=== PATIENT | male | born 1965 | race Caucasian/White ===

== ENCOUNTER 2018-02-13 07:39 | Emergency (ER) | payer BC ==
[~2018-02-13] VITALS: Ht 188 cm; Wt 102.1 kg
[~2018-02-13 07:39] MED LIST: ALPR.5 PO; AMOX500 PO; ARIP20 PO; BENZ100A PO; BUPIVACAINE; BUPR150ER; CARI350 PO; CODGUAEL PO; CRUTCH3 USE; CYCL10 PO; DIAZ5 PO; DOC250 PO; DOXY100 PO; ESCI20 PO; GABA300; GABA400 PO; HYDACE10B PO; HYDACE5 PO; HYDACE5325 PO; HYDMOR2 PO; HYDMOR4 PO; IBUP200; IBUP400 PO; IBUP600 PO; IBUP800 PO; KETO10 PO; METPRE4DP PO; Norco 5-325 Ta1 EACH PO; OLAN10; OXYACE10 PO; OXYACE5T PO; PRED20 PO; PROACE100 PO; PROM25 PO; PROM25S PR; Percocet 10-321 EACH PO; Percocet 5-3251 EACH PO; QUET200; RANI150 PO; RXALBOI INH; RXCODGUASY PO; RXCYCL10 PO; RXHYDMOR2 PO; SULTRIDS PO; TRAM50 PO; Valium5 MG PO
[2018-02-13] MEDS ORDERED: CYCL10 PO (08:19)
[2018-02-13] MEDS ORDERED: Norco 5-325 Ta1 EACH PO (08:19)
== END 2018-02-13 09:03 | disposition home or self-care (01) ==
LOC: ER 07:39
DX: G89.29 Other chronic pain (principal); M54.5 Low back pain; F17.210 Nicotine dependence, cigarettes, uncomplicated; Z88.6 Allergy status to analgesic agent; Z88.1 Allergy status to other antibiotic agents
CPT/HCPCS: 96372; 99282; J1170

== ENCOUNTER 2019-11-18 04:53 | Emergency (ER) | payer OTHER ==
[~2019-11-18] VITALS: Ht 190.5 cm; Wt 99.8 kg
== END 2019-11-18 06:04 | disposition home or self-care (01) ==
LOC: ER 04:53
DX: S60.221A Contusion of right hand, initial encounter (principal); I10 Essential (primary) hypertension; M54.9 Dorsalgia, unspecified; G89.29 Other chronic pain; F17.210 Nicotine dependence, cigarettes, uncomplicated; W19.XXXA Unspecified fall, initial encounter
CPT/HCPCS: 73130; 99283-25

== ENCOUNTER 2020-05-06 13:32 | Emergency (ER) | payer OTHER ==
[~2020-05-06] VITALS: Ht 190.5 cm; Wt 95.2 kg
== END 2020-05-06 15:51 | disposition home or self-care (01) ==
LOC: ER 13:32
DX: R51.9 Headache, unspecified (principal); R11.10 Vomiting, unspecified; H53.149 Visual discomfort, unspecified; F17.210 Nicotine dependence, cigarettes, uncomplicated; Z88.1 Allergy status to other antibiotic agents; Z88.2 Allergy status to sulfonamides
CPT/HCPCS: 70450; 96361; 96374; 96375; 99284-25; J0780; J1200; J1885; J7030

== ENCOUNTER 2021-07-22 12:22 | Emergency (ER) | payer OTHER ==
[~2021-07-22] VITALS: Ht 188 cm; Wt 95.2 kg
[~2021-07-22 12:22] MED LIST changes: +CELECOXIB50 MG PO; +CODACE30 PO
[2021-07-22 13:39] LABS: Source, Urine Clean Catch
[2021-07-22 13:49] LABS: Appearance, Urine Clear (Clear); Bilirubin, Urine Neg (Neg); Blood, Urine Neg (Neg); Color, Urine Yellow (P-Yellow); Glucose Qualitative, Urine Neg (Neg); Ketones, Urine Neg (Neg); Leukocyte Esterase, Urine 1+ (Neg); Nitrite, Urine Neg (Neg); Protein, Urine Neg (Neg); Specific Gravity, Urine 1.025 (1.003-1.022); Urobilinogen, Urine NORM (Normal)
[2021-07-22 14:02] LABS: Bacteria Mod /hpf; Red Blood Cells, Urine Not Seen /hpf (0-2); Squamous Epithelial Cells Rare /hpf (Few); White Blood Cells, Urine 0-2 /hpf (0-5)
[2021-07-22 14:09] LABS: BASOPHILS ABSOLUTE AUTO 0.06 K/mm3 (0.00-0.23); BASOPHILS PERCENT AUTO 1 % (0-2); EOSINOPHILS ABSOLUTE AUTO 0.28 K/mm3 (0.00-0.68); EOSINOPHILS PERCENT AUTO 3 % (0-6); Hemoglobin 16.2 g/dL (13.5-17.5); IMMATURE GRAN ABSOLUTE AUTO 0.03 K/mm3 (0.00-0.10); IMMATURE GRAN PERCENT AUTO 0 % (0-1); LYMPHOCYTES ABSOLUTE AUTO 1.61 K/mm3 (0.84-5.20); LYMPHOCYTES PERCENT AUTO 16 % (21-46); MONOCYTES ABSOLUTE AUTO 0.72 K/mm3 (0.16-1.47); MONOCYTES PERCENT AUTO 7 % (4-13); Mean Corpuscular HGB 27.2 pg (26.0-34.0); Mean Corpuscular HGB Conc 31.8 g/dL (31.5-36.5); Mean Corpuscular Volume 86 fL (80-100); Mean Platelet Volume 10.9 fL (9.1-12.4); NEUTROPHILS PERCENT AUTO 73 % (41-73); Platelet Count 228 K/mm3 (150-400); RDW Coefficient Variation 14.1 % (11.7-14.2); RDW Standard Deviation 44.5 fL (35.1-46.3); Red Blood Cell Count 5.95 M/mm3 (4.30-5.90)
[2021-07-22 14:31] LABS: Alanine Aminotransfer (ALT/SGP 28 U/L (12-78); Albumin/Globulin Ratio 1.1 (0.8-1.8); Alk Phos 99 U/L (50-136); Anion Gap 7 mmol/L (6-16); Aspartate Aminotrans (AST/SGOT 13 U/L (12-37); Bilirubin, Total 0.3 mg/dL (0.1-1.0); Blood Urea Nitrogen 18 mg/dL (8-24); Bun/Creatinine Ratio 19.6 (12.0-20.0); CO2, Blood 27 mmol/L (21-32); Calcium, Blood 8.7 mg/dL (8.5-10.1); Chloride, Blood 106 mmol/L (98-108); Creatinine, Blood 0.92 mg/dL (0.60-1.20); Globulin, Blood 3.5 g/dL (2.2-4.0); Glomerular Filtration Rate >60 (60-); Glucose, Blood 112 mg/dL (70-99); Potassium, Blood 3.8 mmol/L (3.5-5.5); Sodium, Blood 140 mmol/L (136-145); Total Protein, Blood 7.5 g/dL (6.4-8.2)
[2021-12-29] MEDS ORDERED: OMEP20ER PO (12:44)
== END 2021-07-22 17:30 | disposition home or self-care (01) ==
LOC: ER 12:22
PROVIDERS: Physician Assistant
DX: K62.5 Hemorrhage of anus and rectum (principal); Z53.21 Procedure and treatment not carried out due to patient leaving prior to being seen by health care provider
CPT/HCPCS: 76705; 80053; 81001; 83690; 85025; 87086; 99284-25

== ENCOUNTER 2021-12-30 09:18 | Day surgery (SDC) | payer OTHER ==
[~2021-12-30] VITALS: Ht 188 cm; Wt 96.4 kg
[~2021-12-30 09:18] MED LIST changes: +OMEP20ER PO
--- NOTE | 2021-12-30 10:52 | NUR ---
12/30/21 1051 Amelia Lugo HISTORY, CHART, MEDICATIONS AND ALLERGIES REVIEWED BEFORE START OF PROCEDURE. PATIENT CONFIRMS NPO STATUS AND AGREES WITH SCHEDULED PROCEDURE. 3-LEAD EKG REVIEWED WITH PHYSICIAN PRIOR TO START OF PROCEDURE. MONITOR INTACT WITH CONTINUOUS PULSE OXIMETRY,CAPNOGRAPHY, 3-LEAD EKG, INTERMITTENT BP. SUPPLEMENTAL O2 TO BE TITRATED THROUGHOUT PROCEDURE TO MAINTAIN O2 SATURATION ABOVE 90%. PATIENT DETERMINED TO BE ASA APPROPRIATE FOR PROPOFOL SEDATION PRIOR TO START OF PROCEDURE BY DR. CHENG. LIDOCAINE SPRAY TO BACK OF THROAT PRIOR TO ENTERING ROOM.
--- NOTE | 2021-12-30 11:55 | NUR ---
Patient up to Ambulate independently. Gait steady. Discharge instructions reviewed with patient. Patient verbalizes understanding. Copy given to patient to take home. Patient States Post-Procedure ride home has been arranged. Discharged via wheelchair to private car for ride home. ALL BELONGINGS RETURNED TO PATIENT.
== END 2021-12-30 22:46 | disposition home or self-care (01) ==
LOC: ORSCMMR 09:18 → ORD 10:30 → ORSCMMR 10:30
PROVIDERS: Internal Medicine Gastroenterology
PROC: 0DB58ZX Excision of Esophagus, Via Natural or Artificial Opening Endoscopic, Diagnostic (ICD-10-PCS; principal; 2021-12-30 10:30)
DX: R10.13 Epigastric pain (principal); K92.1 Melena; K22.70 Barrett's esophagus without dysplasia; K21.00 Gastro-esophageal reflux disease with esophagitis, without bleeding; K44.9 Diaphragmatic hernia without obstruction or gangrene; F17.210 Nicotine dependence, cigarettes, uncomplicated; Z79.899 Other long term (current) drug therapy
CPT/HCPCS: 88305; J2704; J7120

== ENCOUNTER 2022-03-17 15:08 | Emergency (ER) | payer OTHER ==
[~2022-03-17] VITALS: Ht 188 cm; Wt 95.2 kg
[~2022-03-17 15:08] MED LIST changes: +ACET500 PO
[2022-03-17 15:51] LABS: BASOPHILS ABSOLUTE AUTO 0.04 K/mm3 (0.00-0.23); BASOPHILS PERCENT AUTO 0 % (0-2); EOSINOPHILS ABSOLUTE AUTO 0.02 K/mm3 (0.00-0.68); EOSINOPHILS PERCENT AUTO 0 % (0-6); Hematocrit 46.6 % (37.0-53.0); Hemoglobin 15.4 g/dL (13.5-17.5); IMMATURE GRAN ABSOLUTE AUTO 0.02 K/mm3 (0.00-0.10); IMMATURE GRAN PERCENT AUTO 0 % (0-1); LYMPHOCYTES ABSOLUTE AUTO 0.31 K/mm3 (0.84-5.20); LYMPHOCYTES PERCENT AUTO 3 % (21-46); MONOCYTES ABSOLUTE AUTO 1.33 K/mm3 (0.16-1.47); MONOCYTES PERCENT AUTO 14 % (4-13); Mean Corpuscular HGB 27.5 pg (26.0-34.0); Mean Corpuscular Volume 83 fL (80-100); Mean Platelet Volume 11.2 fL (9.1-12.4); NEUTROPHILS ABSOLUTE AUTO 7.71 K/mm3 (1.96-9.15); NEUTROPHILS PERCENT AUTO 82 % (41-73); Platelet Count 204 K/mm3 (150-400); RDW Coefficient Variation 14.2 % (11.7-14.2); RDW Standard Deviation 43.4 fL (35.1-46.3); Red Blood Cell Count 5.61 M/mm3 (4.30-5.90); White Blood Cell Count 9.43 K/mm3 (4.00-11.30)
[2022-03-17 16:25] LABS: Albumin, Blood 4.5 g/dL (3.4-5.0); Albumin/Globulin Ratio 1.4 (0.8-1.8); Bilirubin, Total 0.5 mg/dL (0.1-1.0); Bun/Creatinine Ratio 13.7 (12.0-20.0); Calcium, Blood 9.4 mg/dL (8.5-10.1); Creatinine, Blood 0.95 mg/dL (0.60-1.20); Globulin, Blood 3.2 g/dL (2.2-4.0); Potassium, Blood 3.5 mmol/L (3.5-5.5); Total Protein, Blood 7.7 g/dL (6.4-8.2)
[2022-03-17 19:09] LABS: Source, Urine Clean Catch
[2022-03-17 19:17] LABS: Appearance, Urine Clear (Clear); Bilirubin, Urine Neg (Neg); Blood, Urine 1+ (Neg); Color, Urine Yellow (P-Yellow); Glucose Qualitative, Urine Neg (Neg); Ketones, Urine 3+ (Neg); Leukocyte Esterase, Urine 1+ (Neg); Nitrite, Urine Neg (Neg); Protein, Urine Neg (Neg); Urobilinogen, Urine NORM (Normal)
[2022-03-17 19:33] LABS: Bacteria Rare /hpf; Red Blood Cells, Urine 0-2 /hpf (0-2); Squamous Epithelial Cells Rare /hpf (Few); White Blood Cells, Urine 0-2 /hpf (0-5)
== END 2022-03-17 19:30 | disposition home or self-care (01) ==
LOC: ER 15:08
PROVIDERS: Physician Assistant
DX: M62.830 Muscle spasm of back (principal); Z79.899 Other long term (current) drug therapy; Z88.8 Allergy status to other drugs, medicaments and biological substances; F17.210 Nicotine dependence, cigarettes, uncomplicated
CPT/HCPCS: 71275; 74175; 80053; 81001; 83690; 85025; 87086; J1170; J1885; J2270; J2405; Q9967

== ENCOUNTER 2023-04-07 08:51 | Emergency (ER) | payer OTHER ==
[~2023-04-07] VITALS: Ht 177.8 cm; Wt 72.6 kg
[2023-04-07 09:30] VITALS: BP 143/99
[2023-04-07] MEDS ORDERED: AMOCLA875 PO (12:06)
[2023-04-07] MEDS ORDERED: Percocet 5-3251 EACH PO (12:06)
== END 2023-04-07 12:35 | disposition home or self-care (01) ==
LOC: ER 08:51
DX: S92.24 Fracture of medial cuneiform (principal); S92.312A Displaced fracture of first metatarsal bone, left foot, initial encounter for closed fracture; W27.0XXA Contact with workbench tool, initial encounter; Z88.6 Allergy status to analgesic agent; Z88.1 Allergy status to other antibiotic agents; Z79.899 Other long term (current) drug therapy; F17.210 Nicotine dependence, cigarettes, uncomplicated
CPT/HCPCS: 12002; 73610; 73630; 90471; 90714; 90715; 96365; 96375; 99283-25; A9270; J0690; J2405